=== PATIENT | female | born 1950 | race Caucasian/White ===

== ENCOUNTER 2024-02-07 13:22 | Day surgery (SDC) | payer MEDICARE ==
[2024-02-07] MEDS ORDERED: Decadron 4 MG INJ IV ONE (13:23)
[2024-02-07] MEDS ORDERED: Xylocaine-Mpf 2% 5 Ml Vial IJ ONE (13:23)
[2024-02-07] MEDS ORDERED: DIPRIVAN 200 MG/20 ML IV ONE (14:26)
--- NOTE | 2024-02-07 16:34 | XRAY ---
Indication: Right C2-C4 MBB. Intraoperative fluoroscopy provided for 11 seconds. 2 digital spot image submitted for interpretation demonstrates posterior needle tips projecting over the expected right C2-C4 nerve roots. Correlate with intraoperative findings/report. Incidental lower cervical fusion hardware.
--- NOTE | 2024-02-07 16:44 | XRAY ---
11 seconds of fluoroscopy was used in surgery for a right C2-C4 MBB.
== END 2024-02-07 15:00 | disposition home or self-care (01) ==
LOC: SDC-PAIN 13:22
PROVIDERS: ATTEND Psychiatry & Neurology Pain Medicine
DX: M47.812 Spondylosis without myelopathy or radiculopathy, cervical region (principal)
CPT/HCPCS: 64490; 64491; 72040; 77002; J1100; J2704

== ENCOUNTER 2024-03-12 13:35 | Day surgery (SDC) | payer MEDICARE ==
[2024-03-12] MEDS ORDERED: Decadron 4 MG INJ IV ONE (13:36)
[2024-03-12] MEDS ORDERED: BUPIVACAINE 0.5% VIAL IJ ONE (13:36)
[2024-03-12] MEDS ORDERED: DIPRIVAN 200 MG/20 ML IV ONE (15:39)
--- NOTE | 2024-03-12 18:50 | XRAY ---
Indication: Right C2-C4 MBB. Intraoperative fluoroscopy provided for 10 seconds. 4 digital spot image submitted for interpretation demonstrates posterior needle tips projecting over the expected right C2-C4 nerve roots. Correlate with intraoperative findings/report. Incidental lower cervical fusion hardware.
--- NOTE | 2024-03-12 19:25 | XRAY ---
10 seconds of fluoroscopy was used in surgery for a right C2-C4 MBB.
== END 2024-03-12 16:20 | disposition home or self-care (01) ==
LOC: SDC-PAIN 13:35
PROVIDERS: ATTEND Psychiatry & Neurology Pain Medicine
DX: M47.812 Spondylosis without myelopathy or radiculopathy, cervical region (principal)
CPT/HCPCS: 64490; 64491; 72040; 77002; J1100; J2704

== ENCOUNTER 2024-04-23 13:24 | Day surgery (SDC) | payer MEDICARE ==
[2024-04-23] MEDS ORDERED: dexAMETHasone sodium phosphate IJ ONE (13:25)
[2024-04-23] MEDS ORDERED: LIDOCAINE HCL 1% AMPUL 5 ML IJ ONE (13:25)
[2024-04-23] MEDS ORDERED: BUPIVACAINE 0.5% VIAL IJ ONE (13:25)
[2024-04-23] MEDS ORDERED: propofoL IV ONE (14:12)
--- NOTE | 2024-04-23 16:54 | XRAY ---
Indication: Right C2-C4 RFA. Intraoperative fluoroscopy provided for 22 seconds. 3 digital spot image submitted for interpretation demonstrates posterior needle tips projecting over the expected right C2-C4 nerve roots. Correlate with intraoperative findings/report.
--- NOTE | 2024-04-23 17:20 | XRAY ---
22 seconds of fluoroscopy was used in surgery for a right C2-C4 RFA.
== END 2024-04-23 14:55 | disposition home or self-care (01) ==
LOC: SDC-PAIN 13:24
PROVIDERS: ATTEND Psychiatry & Neurology Pain Medicine
DX: M47.812 Spondylosis without myelopathy or radiculopathy, cervical region (principal)
CPT/HCPCS: 64633; 64634; 72040; 77002; 99100; J1100; J2704

== ENCOUNTER 2024-06-18 14:39 | Day surgery (SDC) | payer MEDICARE ==
[2024-06-18] MEDS ORDERED: Sodium Chloride 0.9(Preservative Free) 10 ML IJ ONE (14:40)
[2024-06-18] MEDS ORDERED: dexAMETHasone sodium phosphate IJ ONE (14:40)
[2024-06-18] MEDS ORDERED: LIDOCAINE HCL 1% AMPUL 5 ML IJ ONE (14:40)
[2024-06-18] MEDS ORDERED: Sodium Chloride 0.9% 250 ML 250 ML IV ONE (15:51)
--- NOTE | 2024-06-18 20:20 | XRAY ---
Indication: Cervical VICTOR MANUEL. Intraoperative fluoroscopy provided for 39 seconds. 2 digital spot images submitted for interpretation demonstrates posterior needle tip projecting posterior to cervicothoracic junction. Small amount of contrast injected for needle tip placement. Correlate with intraoperative findings/report. Incidental lower cervical fusion hardware.
--- NOTE | 2024-06-18 20:27 | XRAY ---
39 seconds of fluoroscopy were used in surgery for a cervical VICTOR MANUEL.
== END 2024-06-18 17:58 | disposition home or self-care (01) ==
LOC: SDC-PAIN 14:39
PROVIDERS: ATTEND Psychiatry & Neurology Pain Medicine
DX: M54.12 Radiculopathy, cervical region (principal)
CPT/HCPCS: 62321; 72040; 77003; J1100; Q9966

== ENCOUNTER 2024-07-31 07:15 | Day surgery (SDC) | payer MEDICARE ==
[2024-07-31] MEDS ORDERED: Depo-Medrol 40 MG/ML IM ONE (07:16)
[2024-07-31] MEDS ORDERED: BUPIVACAINE 0.5% VIAL IJ ONE (07:16)
[2024-07-31] MEDS ORDERED: propofoL IV ONE (09:28)
[2024-07-31] MEDS ORDERED: Lactated Ringers 1,000 ML IV ONE (10:00)
--- NOTE | 2024-07-31 10:40 | XRAY ---
Indication: Left hip and greater trochanter bursa injection. Intraoperative fluoroscopy provided for 14 seconds. 2 digital spot image submitted for interpretation demonstrates needle tips projecting lateral to left femur neck and left greater trochanter. Small amount of contrast injected for both needle tip placement. Correlate with intraoperative findings/report.
--- NOTE | 2024-07-31 10:52 | XRAY ---
14 seconds of fluoroscopy used in surgery for a left intra-articular hip injection and left greater trochanteric bursa injection.
== END 2024-07-31 09:56 | disposition home or self-care (01) ==
LOC: SDC-PAIN 07:15
PROVIDERS: ATTEND Psychiatry & Neurology Pain Medicine
DX: M16.12 Unilateral primary osteoarthritis, left hip (principal)
CPT/HCPCS: 20610; 73502; 77002; J2704; Q9966